=== PATIENT | female | born 1985 | race Caucasian/White ===

== ENCOUNTER 2017-01-15 13:29 | Emergency (ER) | payer SELFPAY ==
[~2017-01-15] VITALS: Ht 180.3 cm; Wt 95.2 kg
[~2017-01-15 13:29] MED LIST: ALEVE220 M1 PO; CIPRO500 MG PO; KEFLEX500 MG PO; NORCO 5-325 TA1 EACH PO; PYRIDIUM200 MG PO
== END 2017-01-15 14:40 | disposition home or self-care (01) ==
LOC: ED 13:29
DX: N93.9 Abnormal uterine and vaginal bleeding, unspecified (principal); F17.200 Nicotine dependence, unspecified, uncomplicated
CPT/HCPCS: 80048; 81001; 84703; 85025; 99283

== ENCOUNTER 2019-06-06 11:18 | Emergency (ER) | payer SELFPAY ==
[~2019-06-06] VITALS: Ht 180.3 cm; Wt 81.7 kg
[~2019-06-06 11:18] MED LIST changes: +PENICILLIN V P500 MG PO
--- OUTSIDE RECORDS SUMMARY | 2019-06-06 11:22 | XMS ---
PreManage Notification: HARRY DELGADO Security Dock Hand Events No recent Security Events currently on file CRITERIA MET - Group Notification - [facility] - 2 Visits in 30 Days CARE PROVIDERS There are no care providers on record at this time. [facility] has no Care Guidelines for this patient. [facility]12 MO.) [facility] NOTE: Visits indicate total known visits. ED/C VISIT TRACKING (12 MO.) [facility]06[facility]2019 11[facility] COMPLAINT: - TOOTH PAIN 06/02/2019 12:05 [facility] OR TYPE: Emergency COMPLAINT: - POSSIBLE TOOTH ABCESS DIAGNOSES: - Periapical abscess without sinus - Other specified disorders of teeth and supporting structures INPATIENT VISIT TRACKING (12 MO.) No inpatient visits to display in this time frame [email or web address]
[2019-06-06] MEDS ORDERED: IBUPROFEN IB200 MG PO (11:37)
[2019-06-06] MEDS ORDERED: CLINDAMYCIN HC300 MG PO (12:32)
== END 2019-06-06 12:45 | disposition home or self-care (01) ==
LOC: ED 11:18
DX: K04.7 Periapical abscess without sinus (principal); Z87.891 Personal history of nicotine dependence
CPT/HCPCS: 99282

== ENCOUNTER 2020-03-21 10:56 | Emergency (ER) | payer SELFPAY ==
[~2020-03-21] VITALS: Ht 180.3 cm; Wt 73.5 kg
[~2020-03-21 10:56] MED LIST changes: +CLINDAMYCIN HC300 MG PO; +IBUPROFEN IB200 MG PO
[2020-03-21] MEDS ORDERED: NORCO 5-325 TA1 EACH PO (16:23)
[2020-03-21] MEDS ORDERED: AUGMENTIN 875-1 EACH PO (16:23)
== END 2020-03-21 16:43 | disposition home or self-care (01) ==
LOC: ED 10:56
DX: K04.7 Periapical abscess without sinus (principal); K12.2 Cellulitis and abscess of mouth; M27.2 Inflammatory conditions of jaws; F17.200 Nicotine dependence, unspecified, uncomplicated
CPT/HCPCS: 10060; 41800; 70487; 80048; 84703; 85025; 99284-25; J0295; J1885; J3010; Q9967

== ENCOUNTER 2022-12-07 12:36 | Emergency (ER) | payer OTHER ==
[~2022-12-07] VITALS: Ht 180.3 cm; Wt 73.5 kg
[~2022-12-07 12:36] MED LIST changes: +AUGMENTIN 875-1 EACH PO
[2022-12-07] MEDS ORDERED: MECLIZINE HCL25 MG PO (13:21)
[2022-12-07 14:47] VITALS: BP 132/80
== END 2022-12-07 14:49 | disposition home or self-care (01) ==
LOC: ED 12:36
DX: R42 Dizziness and giddiness (principal); F17.200 Nicotine dependence, unspecified, uncomplicated
CPT/HCPCS: 70450; 99284 25; A9270

== ENCOUNTER 2024-04-22 12:03 | Emergency (ER) | payer OTHER ==
[~2024-04-22] VITALS: Ht 180.3 cm; Wt 81.3 kg
[~2024-04-22 12:03] MED LIST changes: +ACETAMINOPHEN500 MG PO; +IBUPROFEN600 MG PO; +MECLIZINE HCL25 MG PO; +OMEPRAZOLE20 MG PO
[2024-04-22] MEDS ORDERED: ONDANSETRON 4 MG TAB ODT SL ONE (13:15)
[2024-04-22] MEDS ORDERED: MECLIZINE HCL 25 MG TAB PO ONE (13:15)
[2024-04-22] MEDS ORDERED: diazePAM 5 MG TAB PO ONE (13:30)
[2024-04-22 14:39] VITALS: BP 135/106
== END 2024-04-22 14:30 | disposition home or self-care (01) ==
LOC: ED 12:03
DX: R42 Dizziness and giddiness (principal); F17.200 Nicotine dependence, unspecified, uncomplicated; Z79.899 Other long term (current) drug therapy
CPT/HCPCS: 99283

== ENCOUNTER 2024-09-02 14:09 | Emergency (ER) | payer OTHER ==
[~2024-09-02] VITALS: Ht 180.3 cm; Wt 83.0 kg
[2024-09-02] MEDS ORDERED: AMOX TR-K CLV1 EAC1 PO (16:44)
[2024-09-02] MEDS ORDERED: KETOROLAC TROMETHAMINE 30 MG/ML VIAL IV ONE (17:15)
[2024-09-02] MEDS ORDERED: SODIUM CHLORIDE 0.9% 1,000 ML IV ONE (17:15)
[2024-09-02 17:21] LABS: BILIRUBIN, URINE NEGATIVE (negative); BLOOD/HGB, URINE NEGATIVE (Negative); KETONE, URINE SMALL (Negative); LEUK ESTERASE, URINE NEGATIVE (negative); NITRITE, URINE NEGATIVE (negative); PH, URINE 6.5 (5-7)
[2024-09-02 17:21] LABS: BASOPHILS 0.2 % (0-2); EOSINOPHILS 2.4 % (0-6); HEMATOCRIT 38.9 % (35.0-50.0); HEMOGLOBIN 13.2 g/dL (12.0-18.0); LYMPHOCYTES 26.1 % (24-44); MCH 32.8 (27-36); MCHC 34.1 g/dl (30-36); MCV 96.2 fl (81-99); MONOCYTES 8.5 % (0-12); NEUTROPHILS 62.8 % (39-80); PLATELET COUNT 282 K/uL (140-440); RBC 4.04 M/ul (4.3-5.7); RDW 12.6 (10.5-15.0)
[2024-09-02 17:36] LABS: ALBUMIN 3.6 g/dL (3.4-5.0); ALBUMIN/GLOBULIN RATIO 1.06 (1.1-2.4); ANION GAP 15.2 (7-21); BILIRUBIN, TOTAL 0.4 mg/dL (0.2-1.0); BUN/CREATININE RATIO 9.75 (6.0-28.6); CALCIUM 8.9 mg/dL (8.5-10.1); CREATININE, SERUM 0.82 mg/dL (0.55-1.02); POTASSIUM 3.2 mmol/L (3.5-5.1)
[2024-09-02 19:29] VITALS: BP 130/82
[2024-09-02] MEDS ORDERED: MAGNESIUM CITRATE 300 ML BTL PO ONE (19:45)
[2024-09-02] MEDS ORDERED: HYDROCODONE BIT/ACETAMINOPHEN 5/325 MG 1 TAB HOME.PACK PO ONE (19:45)
== END 2024-09-02 19:48 | disposition home or self-care (01) ==
LOC: ED 14:09
PROVIDERS: Emergency Medicine
DX: R10.31 Right lower quadrant pain (principal); F17.200 Nicotine dependence, unspecified, uncomplicated
CPT/HCPCS: 36415; 74177; 76830; 76856; 80053; 81003; 83690; 84703; 85025; 96374; 99284-25; A9270; J1885; J7030; Q9967